=== PATIENT | male | born 1975 | race Caucasian/White ===

== ENCOUNTER 2022-08-29 01:11 | Emergency (ER) | payer OTHER ==
--- NOTE | 2022-08-29 01:25 | ERPHSYRPT ---
- History of Present Illness Time Seen by Provider: 08/29/22 01:25 Source: patient Exam Limitations: no limitations Physician History: This is an obese 47-year-old white male resident of the nursing home who was found to have high blood pressure and was feeling chest tightness in the left upper anterior chest wall today. He became diaphoretic and mildly short of breath and was found to have a systolic blood pressure over 220. Patient was started on lisinopril 4 days ago. Patient comes into the emergency department for evaluation. Patient has not had a fever. He denies cough. He has no nausea vomiting or diarrhea. He denies abdominal pain. Patient denies visual changes. Patient denies headache. Timing/Duration: today, day(s) (4), worse Severity: moderate Associated Symptoms: chest pain (Left anterior chest wall without radiation that is an ache), No headaches Allergies/Adverse Reactions: No Known Drug Allergies Allergy (Verified 08/29/22 01:45) Home Medications: Lisinopril 20 mg [Zestril 20 MG] 20 mg PO DAILY 08/29/22 [History] Travel Risk - International Travel Have you traveled outside of the country in past 3 weeks: No - Coronavirus Screening Are you exhibiting any of the following symptoms?: No Close contact with a COVID-19 positive Pt in past 14-21 Days: No - Review of Systems Constitutional: No Symptoms Eyes: No Symptoms Ears, Nose, & Throat: No Symptoms Respiratory: No Symptoms Cardiac: Chest Pain Abdominal/Gastrointestinal: No Symptoms Genitourinary Symptoms: No Symptoms Musculoskeletal: No Symptoms Skin: No Symptoms Neurological: No Symptoms Psychological: Anxiety Endocrine: No Symptoms Hematologic/Lymphatic: No Symptoms Immunological/Allergic: No Symptoms All Other Systems: Reviewed and Negative - Past Medical History Pertinent Past Medical History: Yes - Past Surgical History Past Surgical History: Yes - Nursing Vital Signs Nursing Vital Signs: Initial Vital Signs Temperature 98.7 F 08/29/22 01:26 Pulse Rate 97 H 08/29/22 01:26 Respiratory Rate 18 08/29/22 01:26 Blood Pressure 218/120 08/29/22 01:26 O2 Sat by Pulse Oximetry 97 08/29/22 01:26 Pain Scale Pain Intensity 4 - Physical Exam General Appearance: no apparent distress, alert, anxiety, obese Eye Exam: PERRL/EOMI, eyes nml inspection Ears, Nose, Throat Exam: normal ENT inspection, moist mucous membranes Neck Exam: normal inspection, non-tender, supple, full range of motion Respiratory Exam: normal breath sounds, chest tenderness (Left anterior chest achiness without radiation), lungs clear, airway intact, No respiratory distress Cardiovascular Exam: regular rate/rhythm, normal heart sounds, normal peripheral pulses Gastrointestinal/Abdomen Exam: soft, normal bowel sounds, No tenderness Rectal Exam: not done Back Exam: normal inspection, normal range of motion, No CVA tenderness, No vertebral tenderness Extremity Exam: normal inspection, normal range of motion, pelvis stable Neurologic Exam: alert, oriented x 3, cooperative, court transcriber II-XII nml as tested, normal mood/affect, nml cerebellar function, nml station & gait, sensation nml Skin Exam: normal color, warm, dry Lymphatic Exam: No adenopathy SpO2 Interpretation: normal O2 Delivery: Room Air - Course Nursing assessment & vital signs reviewed: Yes Ordered Tests: Active Orders 24 hr Category Date Time Status Optimization Analyst STAT Care 08/29/22 01:42 Active EKG-ER Only STAT Care 08/29/22 01:41 Active IV Insertion STAT Care 08/29/22 01:41 Active Pulse Oximetry (ED) STAT Care 08/29/22 01:41 Active CBC W DIFF Stat Lab 08/29/22 01:50 Completed CMP Stat Lab 08/29/22 01:50 Completed D-DIMER QUANTITATIVE Stat Lab 08/29/22 01:50 Completed NT PRO BNP Stat Lab 08/29/22 01:50 Completed TROPONIN Q4H Lab 08/29/22 01:50 Completed TROPONIN Q4H Lab 08/29/22 05:45 Ordered TROPONIN Q4H Lab 08/29/22 09:45 Ordered Medication Summary Discontinued Medications Generic Name Dose Route Start Last Admin Trade Name Freq PRN Reason Stop Dose Admin Aspirin 324 mg 08/29/22 01:41 08/29/22 01:58 Aspirin 81 Mg Tab.Chew PO 08/29/22 01:42 324 mg STAT ONE Administration Aspirin Confirm 08/29/22 01:55 Aspirin 81 Mg Tab.Chew Administered 08/29/22 01:56 Dose 324 mg .ROUTE .STK-MED ONE Enalaprilat 1.25 mg 08/29/22 01:43 08/29/22 01:59 Enalaprilat 2.5 Mg Injection IV 08/29/22 01:44 1.25 mg STAT ONE Administration Enalaprilat Confirm 08/29/22 01:55 Enalaprilat 2.5 Mg Injection Administered 08/29/22 01:56 Dose 2.5 mg IV .STK-MED ONE Hydralazine HCl 10 mg 08/29/22 02:32 08/29/22 02:35 Hydralazine Hcl 20 Mg/Ml Vial IV 08/29/22 02:33 10 mg STAT ONE Administration Hydralazine HCl Confirm 08/29/22 02:34 Hydralazine Hcl 20 Mg/Ml Vial Administered 08/29/22 02:35 Dose 20 mg .ROUTE .STK-MED ONE Lab/Rad Data: Laboratory Result Diagrams 08/29/22 01:50 08/29/22 01:50 Laboratory Results 08/29/22 08/29/22 08/29/22 Range/Units 01:50 01:50 01:50 WBC (4.0-10.5) x10^3/uL RBC (4.1-5.6) x10^6/uL Hgb (12.5-18.0) g/dL Hct (42-50) % MCV (78-100) fL MCH (26-32) pg MCHC (32-36) g/dL RDW (11.5-14.0) % Plt Count (150-450) x10^3/uL MPV (7.5-11.0) fL Gran % (36.0-66.0) % Immature Gran % (Auto) (0.00-0.4) % Nucleat RBC Rel Count (0.00-0.1) % Eos # (Auto) (0-0.5) x10^3/uL Immature Gran # (Auto) (0.00-0.03) x10^3u/L Absolute Lymphs (auto) (1.0-4.6) x10^3/uL Absolute Monos (auto) (0.0-1.3) x10^3/uL Absolute Nucleated RBC (0.00-0.01) x10^3u/L Lymphocytes % (24.0-44.0) % Monocytes % (0.0-12.0) % Eosinophils % (0.00-5.0) % Basophils % (0.0-0.4) % Absolute Granulocytes (1.4-6.9) x10^3/uL Basophils # (0-0.4) x10^3/uL D-Dimer 0.24 (0.0-0.50) mg/L Sodium 136 L (137-145) mmol/L Potassium 3.7 (3.5-5.1) mmol/L Chloride 103 (98-107) mmol/L Carbon Dioxide 23 (22-30) mmol/L Anion Gap 13.5 (5-15) MEQ/L BUN 14 (9-20) mg/dL Creatinine 0.87 (0.66-1.25) mg/dL Estimated GFR > 60.0 ML/MIN Glucose 178 H (74-106) mg/dL Calcium 8.9 (8.4-10.2) mg/dL Total Bilirubin 0.50 (0.2-1.3) mg/dL AST 34 (17-59) U/L ALT 40 (0-50) U/L Alkaline Phosphatase 110 (38-126) U/L Troponin I < 0.012 (0.000-0.034) ng/mL NT-Pro-B Natriuret Pep 190 (0-450) pg/mL Serum Total Protein 8.3 H (6.3-8.2) g/dL Albumin 4.6 (3.5-5.0) g/dL 08/29/22 Range/Units 01:50 WBC 10.3 (4.0-10.5) x10^3/uL RBC 5.01 (4.1-5.6) x10^6/uL Hgb 14.9 (12.5-18.0) g/dL Hct 45.9 (42-50) % MCV 91.6 (78-100) fL MCH 29.7 (26-32) pg MCHC 32.5 (32-36) g/dL RDW 13.3 (11.5-14.0) % Plt Count 301 (150-450) x10^3/uL MPV 9.8 (7.5-11.0) fL Gran % 88.5 H (36.0-66.0) % Immature Gran % (Auto) 2.4 H (0.00-0.4) % Nucleat RBC Rel Count 0.0 (0.00-0.1) % Eos # (Auto) 0 (0-0.5) x10^3/uL Immature Gran # (Auto) 0.25 H (0.00-0.03) x10^3u/L Absolute Lymphs (auto) 0.77 L (1.0-4.6) x10^3/uL Absolute Monos (auto) 0.11 (0.0-1.3) x10^3/uL Absolute Nucleated RBC 0.00 (0.00-0.01) x10^3u/L Lymphocytes % 7.5 L (24.0-44.0) % Monocytes % 1.1 (0.0-12.0) % Eosinophils % 0.0 (0.00-5.0) % Basophils % 0.5 (0.0-0.4) % Absolute Granulocytes 9.09 H (1.4-6.9) x10^3/uL Basophils # 0.05 (0-0.4) x10^3/uL D-Dimer (0.0-0.50) mg/L Sodium (137-145) mmol/L Potassium (3.5-5.1) mmol/L Chloride (98-107) mmol/L Carbon Dioxide (22-30) mmol/L Anion Gap (5-15) MEQ/L BUN (9-20) mg/dL Creatinine (0.66-1.25) mg/dL Estimated GFR ML/MIN Glucose (74-106) mg/dL Calcium (8.4-10.2) mg/dL Total Bilirubin (0.2-1.3) mg/dL AST (17-59) U/L ALT (0-50) U/L Alkaline Phosphatase (38-126) U/L Troponin I (0.000-0.034) ng/mL NT-Pro-B Natriuret Pep (0-450) pg/mL Serum Total Protein (6.3-8.2) g/dL Albumin (3.5-5.0) g/dL - Progress Progress: improved Counseled pt/family regarding: lab results, diagnosis, need for follow-up - Departure Departure Disposition: Usp/Custodial Clinical Impression: Hypertension Condition: Stable Critical Care Time: Yes Critical Care Time(excluding separately billable procedures): Critical 30-74 mins (30 minutes) Additional Instructions: Take your medication for blood pressure as prescribed. Follow-up with your [facility] prescribing provider for further evaluation and management
[2022-08-29] MEDS ORDERED: BABY ASPIRIN 81 MG CHEW PO ONE (01:41)
[2022-08-29] MEDS ORDERED: ENALAPRILAT 2.5 MG INJECTION IV ONE ×2 (01:43→01:55)
[2022-08-29] MEDS ORDERED: BABY ASPIRIN 81 MG CHEW ONE (01:55)
[2022-08-29 01:58] LABS: Absolute Neutrophil Ct (ANC) 9.09 x10^3/uL (1.4-6.9); Basophil (Absolute #) 0.05 x10^3/uL (0-0.4); Eosinophil (Absolute #) 0 x10^3/uL (0-0.5); Hematocrit 45.9 % (42-50); Hemoglobin 14.9 g/dL (12.5-18.0); Lymphocyte (Absolute #) 0.77 x10^3/uL (1.0-4.6); Lymphocytes % 7.5 % (24.0-44.0); Mean Cell Volume 91.6 fL (78-100); Mean Corpuscular Hemoglobin 29.7 pg (26-32); Mean Corpuscular Hgb Concent. 32.5 g/dL (32-36); Mean Platelet Volume 9.8 fL (7.5-11.0); Monocyte (Absolute #) 0.11 x10^3/uL (0.0-1.3); Monocytes % 1.1 % (0.0-12.0); Neutrophil % 88.5 % (36.0-66.0); Platelet Count 301 x10^3/uL (150-450); Red Blood Count 5.01 x10^6/uL (4.1-5.6); Red Cell Distribution Width 13.3 % (11.5-14.0); White Blood Count 10.3 x10^3/uL (4.0-10.5)
[2022-08-29 02:23] LABS: ALBUMIN 4.6 g/dL (3.5-5.0); ALKALINE PHOSPHATASE 110 U/L (38-126); ANION GAP 13.5 MEQ/L (5-15); BLOOD UREA NITROGEN 14 mg/dL (9-20); CHLORIDE 103 mmol/L (98-107); Calcium 8.9 mg/dL (8.4-10.2); Carbon Dioxide 23 mmol/L (22-30); Creatinine 1 0.87 mg/dL (0.66-1.25); EST GLOMERULAR FILTRATION RATE > 60.0 ML/MIN; Glucose 178 mg/dL (74-106); NT PRO BNP 190 pg/mL (0-450); Potassium 3.7 mmol/L (3.5-5.1); SGOT/AST 34 U/L (17-59); SGPT/ALT 40 U/L (0-50); SODIUM 136 mmol/L (137-145); Total Protein 8.3 g/dL (6.3-8.2)
[2022-08-29] MEDS ORDERED: APRESOLINE 20 MG/ML INJ IV ONE (02:32)
[2022-08-29] MEDS ORDERED: APRESOLINE 20 MG/ML INJ ONE (02:34)
[2022-08-29 04:32] VITALS: O2SAT 95
[2022-08-29 04:51] VITALS: BP 157/92; PULSE 84
== END 2022-08-29 04:51 | disposition home or self-care (01) ==
LOC: EEVIPCON 01:11 → ED 01:11
DX: I10 Essential (primary) hypertension (principal); R07.9 Chest pain, unspecified; Z79.899 Other long term (current) drug therapy
CPT/HCPCS: 36000; 36415; 80053; 83880; 84484; 85025; 85379; 93005; 93041; 94760; 96374; 96375; 99284; 99291; J0360; A9270-GY